=== PATIENT | female | born 1965 | race Hispanic/Latino ===

== ENCOUNTER 2016-12-11 13:02 | Emergency (ER) | payer MEDICARE, MEDICAID ==
[2016-12-11] VITALS (8 sets, daily range): BP systolic 131–173; BP diastolic 78–116; PULSE 86–110; RESP 12–19; O2SAT 99
[~2016-12-11] VITALS: Ht 165.1 cm; Wt 84.1 kg
[~2016-12-11 13:02] MED LIST: AMLO10TA3 PO; ASCO250T6 PO; CHOL2000 PO; CITA20TA PO; FLE10 PO; LOSA50TA37 PO; TRAM50TA2 PO; ULTRAM50 MG PO; ZLP5T PO; [UNRECOGNIZED DRUG - CODE] TOP
[2016-12-11 14:15] LABS: BASOPHILS % (AUTO) 0.4 % (0-3); EOSINOPHILS % (AUTO) 4.9 % (0-5); MONOCYTES % (AUTO) 10.1 % (4-12); Mean Corpuscular Hemoglobin 28.9 pg (27.0-35.0); Mean Corpuscular Volume 87.4 fL (81-100); NEUTROPHILS % (AUTO) 51.4 % (40-74); Platelet Count 305 bil/L (150-400)
--- NOTE | 2016-12-11 14:24 | ED.REPORT ---
HPI-Abd Pain F 40 and Over Date of Service Dec 11, 2016 ED Provider: Hernan Rose MD The patient is a 51 year old female with history of hypertension who presents to the emergency department complaining of RUQ abdominal pain that began over 1 week ago. She describes the pain as burning. At most severe her pain is at a 9/ 10. She has also experienced decreased appetite and nausea. Her pain is worse with eating. The patient reports history of live cysts, gastric ulcers, esophageal stricture, and amoeba infestation. She stopped taking her medications 5 days ago because of her abdominal pain. She denies fever, chills, constipation, vomiting, diarrhea, hematochezia, dysuria or hematuria. She was seen at [facility] 3-4 years ago and was told she has end stage liver disease and they can no longer treat it. Her PCP is Dr. Gentile, her last appointment with him was about 6 weeks ago. The patient states last time she was in [place] she saw an herbalist who removed 2 worms from her body. She states she was told there were 3 but they only removed 2. The worms were removed by defecation. She saw a worm in her stools 2 days ago. Her last endoscopy procedure was about 6 years ago. She also reports a chronic cough with "orange" sputum. Nursing Notes Stated Complaint: ABDOMINAL PAIN Chief Complaint: Female Abdominal Pain Nursing Notes Reviewed: Yes ([employer] not reconciled) Allergies: Coded Allergies: No Known Allergies (Unverified Allergy, Unknown, 03/16/14) ibuprofen (Verified Adverse Reaction, Unknown, stomach ulcers, 01/21/15) Scheduled ([Xolegel]) % TOP BID Amlodipine (Amlodipine) 10 Mg Tablet 10 MG PO DAILY Ascorbic Acid-Expunged Drug, Do Not Renew! (Vitamin C-Expunged Drug, Do Not Renew!) 250 Mg Tablet 250 MG PO DAILY Cholecalciferol (Vitamin D3) (Vitamin D) 2,000 Unit Capsule 2,000 UNIT PO DAILY Citalopram-Expunged Drug, Do Not Renew! (Citalopram-Expunged Drug, Do Not Renew! ) 20 Mg Tablet 40 MG PO DAILY Cyclobenzaprine-Expunged Drug, Do Not Renew! (Flexeril-Expunged Drug, Do Not Renew!) 10 Mg Tablet 5 MG PO TID FOR MUSCLE SPASM Losartan Potassium (Losartan Potassium) 50 Mg Tablet 50 MG PO BID Tramadol-Expunged Drug, Do Not Renew! (Ultram-Expunged Drug, Do Not Renew!) 50 Mg Tab 50 MG PO Q6HP Scheduled PRN Tramadol (Tramadol) 50 Mg Tablet 50 MG PO TID PRN PRN For Pain Zolpidem (Ambien) 5 Mg Tab 5 MG PO HS PRN PRN For Insomnia General Time Seen by MD: 14:17 Chief Complaint Abdominal pain Hx Obtained From: Patient, [employer] Arrived By: Walk-in Sudden in Onset?: No Onset Occurred: More than a week ago... Symptom Duration: Since onset Progression since Onset: Constant Location: : RUQ Quality: Painful Severity: Current: Moderate Severity: Maximum: Severe Pertinent Negative: Pt denies other symptoms Recent Healthcare: No recent hospitalization, Recent doctor visit Similar Sx Previous: Yes Past Medical History Past Medical History Notes: Medications: Amlodipine Besylate 10mg Tab 1 PO daily Losartan POtassium 50mg tabs 1 PO bid Vitamin D 2000UNIT capsule 1 PO daily Tramadol HCl 50mg tab 1-2 PO tid prn for pain Zolpidem Tartrate 5mg tab 1 PO at bedtime prn for sleep Past Medical History "Gastric ulcers" End stage liver disease - "I was told at [facility] that I have terminal disease and that I would within a few months-and I was told this about 3-4 years ago" Esophageal stricture - details unclear, patient says "I have a blockage in my esophagus" Liver cysts Parasitic and/or amoebic disease-patient claims she has at least 3 known "worms" and that 2 were removed following herbal therapy in [place] in recent weeks with a 48 hour hospitalization Chronic back pain - on tramadol through local pain specialist Hypertension Reports: Hypertension Past Surgical History Bladder surgery The patient reports hysterectomy, appendectomy, and cholecystectomy - however which she actually states is that they told her "all my organs are bad, and when laparoscopically and took out her appendix and gallbladder and uterus in a single surgery" pointing at her laparoscopic scars. She also states this is how her ulcer disease was managed with the surgery. Reports: Family History Noncontributory Smoking History Never Smoker Social History Drug Use: Denies drug use Other Social History: Local resident Ambulatory Status Independent Review of Systems Cough with orange sputum Constitutional: Denies: Chills, Fever GI: Reports: Abdominal pain, Anorexia, Nausea, Denies: Bloody/tarry stool, Constipation, Diarrhea, Hematemesis, Hematochezia , Vomiting Female: Denies: Dysuria, Hematuria Complete sys rev & neg: except as marked. Physical Exam Vital Signs Vital Signs (First) Date Time Temp Pulse Resp B/P Pulse Ox O2 Delivery O2 Flow Rate FiO2 12/11/16 13:13 36.4 110 18 171/116 99 Initial VS: Reviewed, Vital signs abnormal (tachycardia, HTN) ENT: Mucous membranes moist, Conjunctiva normal, No scleral icterus Neck: Supple, Non-tender, Full range of motion Lymphatic: No lymphadenopathy Extremities: Vascular intact, Neuro intact, No swelling, No tenderness Neurologic: Alert, Oriented, Nonfocal Psychiatric: Mood/affect normal, Behavior normal, Normal thought content General/Constitutional: Awake, Alert, Well appearing, Cooperative Patient does not appear in visible pain. She is not jaundiced or icteric. He is not appear anasarca. Respiratory / Chest: Atraumatic, Breath sounds NL, Breath sounds = bilat, No respiratory distress, No rales, No rhonchi, No wheezing, No stridor Cardiovascular: Heart rate NL, Regular rhythm, Heart sounds NL, No gallop, No murmurs, No rubs, Peripheral circulation NL Abdomen: Soft, No guarding, No rebound, BS normoactive, No distention, No hernia, No palpable mass, No pulsatile mass Tenderness/Guarding/Rebound: Positive: Tender diffuse No ascites. Laparoscopic scars. Back: Atraumatic, Inspection NL, Full range of motion, Non-tender, No CVA tenderness Head / Eyes: Atraumatic, Normocephalic, PERRL, EOMI, No scleral icterus, Conjunctiva NL Skin: Atraumatic, Color NL, No rash, Warm, Dry Color / Condition: Negative: Jaundice present Interpretation & Diagnostics Lab Results Interpretation Result Diagram: 12/11/16 1400 12/11/16 1400 Test 12/11/16 14:00 White Blood Count 8.2th/mm3 (3.8-10.1) Red Blood Count 4.12mil/mm3 (3.90-5.20) Hemoglobin 11.9g/dL (12.0-15.6) Hematocrit 36.0% (35.0-46.0) Mean Corpuscular Volume 87.4fL (81-100) Mean Corpuscular Hemoglobin 28.9pg (27.0-35.0) Mean Corpuscular Hemoglobin Concent 33.1% (32.0-37.0) Red Cell Distribution Width 13.4% (12.3-15.4) Platelet Count 305bil/L (150-400) Neutrophils (%) (Auto) 51.4% (40-74) Lymphocytes (%) (Auto) 33.1% (14-46) Monocytes (%) (Auto) 10.1% (4-12) Eosinophils (%) (Auto) 4.9% (0-5) Basophils (%) (Auto) 0.4% (0-3) Prothrombin Time 10.5sec (8.1-12.5) Prothromb Time International Ratio 0.98ratio Sodium Level 137mEq/L (134-144) Potassium Level 3.6mEq/L (3.5-5.2) Chloride Level 102mEq/L (97-108) Carbon Dioxide Level 25mmol/L (18-29) Blood Urea Nitrogen 9mg/dL (6-24) Creatinine 0.48mg/dL (0.57-1.00) Estimat Glomerular Filtration Rate 194mL/min (>59) Glucose Level 94mg/dL (60-99) Lactic Acid Level 0.7mmol/L (0.4-2.0) Calcium Level 8.7mg/dL (8.5-10.1) Magnesium Level 2.1mg/dL (1.6-2.6) Total Bilirubin 0.6mg/dL (0.0-1.2) Aspartate Amino Transf (AST/SGOT) 15U/L (0-50) Alanine Aminotransferase (ALT/SGPT) 14U/L (0-32) Alkaline Phosphatase 150U/L (25-150) Troponin T < 0.010ug/L (0.0-0.011) Total Protein 8.3g/dL (6.4-8.4) Albumin 3.9g/dL (3.4-5.0) Lipase 33U/L (13-60) Lab Results Interpretation: CBC normal, no thrombocytopenia CMP normal renal function, normal LFTs-no markers of her liver disease are evident LFTs are normal Lipase is normal Lactic acid is normal Troponin is normal Re-Eval/Medical Decision Med Decision/Clinical Course This is a 51-year-old female presents with 5 days of worsening abdominal pain, initially in the epigastric region now a right upper quadrant, as well as the left lower quadrant, and associated with poor oral intake. Eyes fevers or chills has nausea but states "I cannot vomit". She denies any new bleeding, but reports she has been spitting up "orangish" phlegm for many years and that has not changed. Her pain is gotten worse and she rates it a 9 out of 10, although she does not appear in visible discomfort-the pain is worse in the point she is having difficulty eating, and was too uncomfortable to take any of her medicines for the past 5 days. There is sometimes a burning component, but also sharp component. The patient denies melena, denies bloody stools-but also talks about having recent worms "extracted" by "herbal therapy" during a "48 hour hospitalization" in [place] recently. Patient is tachycardic, also hypertensive, but not febrile. She does not appear toxic, jaundiced, or overt liver failure. She does not appear encephalopathic. [employer] was required, and the patient gave clearcut straight answers to every question, however when he came to why certain procedures are done the description she gave I could not make sense. For example the patient tells me that her peptic ulcer disease was treated by laparoscopic surgery, and then inside the decided that "all her organs were bad and so they removed her appendix, gallbladder, and uterus during a laparoscopic procedure reportedly being done for peptic ulcers". She also talks about these worms and potentially amoebic infections, liver cysts, terminal liver disease all in a fashion that I cannot follow. She has trace tenderness, but is not entirely reproducible and I do not appreciate a mass, ascites, or other hard findings on exam. Again she is tachycardic, also markedly hypertensive. At this point labs are being obtained. I am attempting to obtain records both from her primary care physician Twin cordoba at [place] she reports she was seen 7 weeks ago or so in an attempt to obtain a clear medical history, and medication list. I have also even attempted to obtain records from [facility] from 3-4 years ago the patient talks about this diagnosis of reportedly terminal liver disease. To pursue the workup in this difficult to follow patient, a CT with oral contrast is being obtained. The patient is being turned over to Dr. Gee change of shift for reevaluation and management Source of Hx: Old records Re-Evaluation/Progress : Time of Eval: 14:40 Re-Evaluation/Progress Note: Discussed plan for workup with the patient. Counseled Regarding: Diagnosis, Lab results Discharge & Departure Shift Change Sign-Out Patient Care Transferred: Yes Discussed Complaint(s): Yes Laboratory Evaluation: Back, reviewed by me (labs returned during signout, I have reviewed them) Imaging Studies: Ordered, not yet done Response to Therapy: Discussed Primary Impression: Epigastric abdominal pain Discharge Condition All VS Reviewed: Yes Condition: Stable Referrals: Twin Gentile MD (PCP) Care Transferred to: Dr. Gee Care Transferred at: 15:01 Li Attestation Portions of this note were transcribed by Raquel Kou. I, Dr. Rose personally performed the history, physical exam and medical decision-making; I reviewed and confirmed the accuracy of the information in the transcribed note. Signed by: Li Nelson, 12/11/2016 and 1501. copies to: Twin Gentile MD, Matthew F MD Dec 11, 2016 14:24 Raquel Kuo Dec 11, 2016 14:39
[2016-12-11 14:33] LABS: Magnesium 2.1 mg/dL (1.6-2.6)
[2016-12-11 14:35] LABS: INR 0.98 ratio
[2016-12-11] MEDS ORDERED: Iohexol 300 mg/mL 30 mL Inj PO ONE (14:45)
[2016-12-11] MEDS ORDERED: Ondansetron 2 mg/mL 2 mL Inj IVPUSH ONE (14:45)
[2016-12-11] MEDS ORDERED: LidocaineVisc 2%:Antacid 1:1 10 mL Syringe PO ONE (14:45)
[2016-12-11] MEDS: HYDROmorphone 0.5 mg/0.5 mL iSecure Syringe IVPUSH PRN ×2 (15:30→16:40)
--- NOTE | 2016-12-11 17:36 | DRSVH ---
PROCEDURE: CT ABDOMEN AND PELVIS WITH CONTRAST ([id number]) INDICATIONS: ABd pain, ho liver "cysts", ameobiosis TECHNIQUE: After the administration of oral and intravenous contrast, 5 mm thick sections acquired from the diap hragms to the symphysis. 5 mm thick coronal and sagittal reformats were performed. For radiation do se reduction, the following was used: automated exposure control, adjustment of mA and/or kV accordi ng to patient size. COMPARISON: [facility], CT, ABDOMEN W CONTRAST, 02/27/2013, 13:06. FINDINGS: Image quality: Excellent. ABDOMEN: Lung bases: Lung bases are clear. Heart size is normal. Solid organs: Innumerable low-density thin-walled cystic lesions are present throughout the liver sug gesting polycystic liver disease. Overall, the cysts a similar appearance to the prior comparison CT dated 02/27/13. The portal vein is patent. The spleen demonstrates normal size and overall enhancement . A 1.8 cm diameter cystic lesion is present at the lower pole. This is unchanged from 2012. Gallblad tiigst is unremarkable. Biliary system is non-dilated. Pancreas enhances normally. No adrenal nodules . Kidneys are normal in size and enhancement, without hydronephrosis. A subcentimeter low-density c yst is present in the upper pole of the right kidney. Peritoneum and bowel: Patient is status post gastroesophageal fundoplication. The small bowel and col on loops are normal in caliber and wall thickness. The appendix is not visualized; however surgical c lips are present in the region of the cecum in the lower quadrant suggesting prior appendectomy. No free fluid or air. Nodes and vessels: No retroperitoneal or mesenteric adenopathy. Aorta and inferior vena cava are no rmal in caliber. Miscellaneous: No ventral hernias. PELVIS: Genitourinary: Bladder wall thickness is normal. Uterus and ovaries are not visualized and may be s urgically absent. Miscellaneous: No inguinal hernias or adenopathy. Bones: No suspicious bony lesions. No vertebral body compression fractures. IMPRESSION: 1. No acute intra-abdominal findings. Patient is likely status post prior appendectomy. 2. Multiple hepatic cysts and solitary splenic cyst overall similar in extent to the study from 2012. Dictated by: Breanna Fabian M.D. on 12/11/2016 at 17:24 Approved by: Breanna Fabian M.D. on 12/11/2016 at 17:30
[2016-12-11] MEDS ORDERED: HYDR-4003 PO (18:01)
[2016-12-11] MEDS ORDERED: ONDA4TAB9 PO (18:01)
== END 2016-12-11 18:34 ==
LOC: SED 13:02
DX: R10.13 Epigastric pain (principal); R10.11 Right upper quadrant pain; R10.32 Left lower quadrant pain; R11.0 Nausea; R05 Cough; I10 Essential (primary) hypertension; Z87.19 Personal history of other diseases of the digestive system; Z87.11 Personal history of peptic ulcer disease; Z86.19 Personal history of other infectious and parasitic diseases; Z88.6 Allergy status to analgesic agent
CPT/HCPCS: 36415; 74177; 80053; 83605; 83690; 83735; 84484; 85025; 85610; 93005; 96374; 96375; 96376; 99285; J1170; J2405; Q9967